=== PATIENT | female | born 1990 | race African-American/Black ===

== ENCOUNTER 2019-11-02 04:56 | Emergency (ER) | payer OTHER ==
[~2019-11-02] VITALS: Ht 160 cm; Wt 57.2 kg
[2019-11-02 06:45] VITALS: BP 112/53
[2019-11-02] MEDS ORDERED: ONDANSETRON ODT 4 MG TAB PO ONE (07:30)
== END 2019-11-02 07:56 | disposition home or self-care (01) ==
LOC: ER 04:56
DX: K52.9 Noninfective gastroenteritis and colitis, unspecified (principal); R06.02 Shortness of breath
CPT/HCPCS: 99283; Q0162

== ENCOUNTER 2020-01-07 23:49 | Emergency (ER) | payer MEDICAID ==
[~2020-01-07] VITALS: Ht 160 cm; Wt 58.5 kg
[2020-01-08 01:01] LABS: Urine Amorphous Crystal FEW /hpf (None Seen); Urine Bacteria FEW /hpf (None Seen); Urine Blood Negative /uL (Negative); Urine Specific Gravity 1.009 (1.001-1.035); Urine WBC 16 /hpf (0 - 5)
[2020-01-08 01:13] LABS: Amphetamine Screen, Urine NEGATIVE (NEGATIVE); Barbiturate Scree,Urine NEGATIVE (NEGATIVE); Benzodiazephine Screen, Urine NEGATIVE (NEGATIVE); Cannabinoid Screen, Urine NEGATIVE (NEGATIVE); Cocaine Screen, Urine NEGATIVE (NEGATIVE); Opiate Scree,Urine NEGATIVE (NEGATIVE); Phencyclidine Screen, Urine NEGATIVE (NEGATIVE)
[2020-01-08 01:14] LABS: Basophils # (auto) 0 10 ^3/uL (0-0.2); Basophils % (auto) 0.4 % (0.0-2.0); Eosinophils # (auto) 0.2 10 ^3/uL (0-0.8); Eosinophils % (auto) 2.3 % (0.0-7.0); Hematocrit 40.1 % (36.0-46.0); Hemoglobin 13.6 g/dL (12.2-16.2); Lymphocytes % (auto) 24.2 % (10.0-50.0); Mean Corpuscular Hemoglobin 28.1 pg (28.0-32.0); Mean Corpuscular Hgb Conc. 33.9 g/dL (32.0-36.0); Mean Corpuscular Volume 82.7 fL (80.0-100.0); Monocytes # (auto) 0.7 10 ^3/uL (0-1.3); Monocytes % (auto) 8.8 % (0.0-12.0); Neutrophils # (auto) 5.4 10 ^3/uL (1.6-8.6); Neutrophils % (auto) 64.3 % (37.0-80.0); Nucleated Red Blood Cells % 0.1 %; Platelet Count (auto) 325 10^3/uL (140-450); Red Blood Cells 4.85 10^6/uL (4.0-5.20); Red Cell Distribution Width 14.4 % (11.8-14.3); White Blood Cell 8.5 10^3/uL (4.4-10.8)
[2020-01-08 01:31] LABS: Albumin 3.4 g/dL (3.4-5.0); BUN/Creatinine Ratio 16.1; Calcium 9.1 mg/dL (8.5-10.1)
[2020-01-08 01:34] LABS: Bilirubin, Total 0.3 mg/dL (0.2-1.0); Total Protein 7.9 g/dL (6.4-8.2)
[2020-01-08] MEDS ORDERED: NITROFURANTOIN (MONO) 100 mg CAP PO ONE (05:30)
[2020-01-08 06:54] VITALS: BP 99/50
== END 2020-01-08 06:55 | disposition home or self-care (01) ==
LOC: ER 23:50
DX: O23.41 Unspecified infection of urinary tract in pregnancy, first trimester (principal); O20.8 Other hemorrhage in early pregnancy; Z3A.09 9 weeks gestation of pregnancy
CPT/HCPCS: 36415; 76801; 80053; 80307; 81001; 82150; 83690; 84702; 85025